=== PATIENT | female | born 1965 | race African-American/Black ===

== ENCOUNTER 2016-10-30 15:07 | Emergency (ER) ==
[2016-10-30 17:09] VITALS: BP 152/82
--- NOTE | 2016-10-30 18:32 | Diag Imaging Result Document ---
PROCEDURE NAME: FLAT/UPRIGHT ABD/1 VIEW CHEST - 10/30/2016 FLAT AND UPRIGHT WITH CHEST, 5 VIEWS: COMPARISON: Chest compared to 08/17/2015. The lungs are well expanded. The heart is not enlarged. No pneumonia. No free air beneath the diaphragm. The bowel loops are not dilated. There is stool in the proximal colon. No organomegaly. No abnormal abdominal calcifications. There is a left pelvic calcification believed to be a phlebolith. Mild curvature to the spine. IMPRESSION: Mild constipation.
[2016-10-30 19:07] LABS: MANUAL DIFF NEEDED? NO
[2016-10-30 19:10] LABS: BASO% 0.2 % (0.0-0.8); EOS# 0.09 X1000 (0.0-0.7); EOS% 0.9 % (0.0-10.0); HEMATOCRIT 39.8 % (37.0-47.0); HEMOGLOBIN 13.1 g/dL (12.0-16.0); IMM GRAN# 0.03 X1000 (0.0-0.04); IMM GRAN% 0.3 % (0.0-0.5); LYMPH# 2.98 X1000 (1.2-3.4); LYMPH% 28.7 % (20.5-51.1); MCH 28.9 PG (27-31); MCHC 32.9 g/dL (33-37); MCV 87.7 FL (81-99); MONO# 0.67 X1000 (0.11-0.59); MONO% 6.4 % (1.7-9.3); MPV 8.8 FL (7.4-10.4); NEUT% 63.5 % (42.2-75.2); PLT 316 X1000 (130-400); RBC 4.54 XMIL (4.2-5.4)
[2016-10-30] MEDS ORDERED: ZOFRAN ODT PO ONE (19:21)
--- NOTE | 2016-10-30 19:21 | PROVIDER DOCUMENTATION ---
HPI-Abdominal Pain/GI Problem - General Chief Complaint: Nausea/Vomiting Stated Complaint: THROWING UP Time Seen by Provider: 10/30/16 19:16 Source: patient Allergies/Adverse Reactions: Patient Allergies Allergy/AdvReac Type Severity Reaction Status Date / Time aspirin AdvReac NAUSEA Verified 10/30/16 17:08 Home Medications: Home Medication List Medication Instructions Recorded Confirmed Last Taken Type Fluticasone 50 Mcg Nasal [place] 2 spray RAMONA DAILY 12/31/12 10/30/16 12/28/12 History [Flonase] Iron,Carbonyl [Iron] 65 mg PO QAM 12/31/12 10/30/16 08/17/15 History Losartan/Hydrochlorothiazide 1 each PO QAM 12/31/12 10/30/16 08/17/15 History [Losartan-Hctz 100-12.5 mg Tab] Nabumetone 1,000 mg PO QHS 12/31/12 10/30/16 1 Day Ago History Potassium Chloride [Klor-Con 10] 20 meq PO QHS 12/31/12 10/30/16 1 Day Ago History Fluticasone/Salmet 100/50 INH 1 puff INH RTBID #1 inhaler 08/17/15 10/30/16 Unknown Rx [Advair 100/50 Diskus] Ondansetron Odt [Zofran 8Mg Odt] 8 mg PO Q8H PRN PRN #20 tablet 10/30/16 Unknown Rx Potassium Chloride [K-Tab ER] 20 meq PO BID #20 tablet.er 10/30/16 Unknown Rx - History of Present Illness-ABD Nature of Presenting Problems: 51 yof c/o vomiting started about 11 am and 2 other times today. Denies diarrhea , Last BM this morning. No abd pain. No other symptoms at this time. Abdominal Pain Onset Location: denies: RUQ, LUQ, RLQ, LLQ, epigastric, periumbilical, suprapubic, generalized abdomen, flank, unknown, other Pain Radiation: denies: no radiation, RUQ, LUQ, RLQ, LLQ, epigastric, periumbilical, flank, groin, scapula, shoulder, chest, back, other Quality of Pain: reports: none Severity in ED: denies: mild, moderate, severe Onset/Duration: reports: 4-6 hours ago Timing: reports: intermittent Activities at Onset: reports: none Exposure to sick contacts?: No Modifying Factors: improves with: nothing Associated Symptoms: reports: nausea, vomiting Last BM: this morning Dark Stools Present?: reports: none noticed Rectal Bleeding: reports: none Rectal Pain: reports: none # of Vomiting Episodes: 3 Bruising or Bleeding Gums?: No Similar Symptoms Previously?: No Recently seen or treated by another doctor?: No Review of Systems - Adult - REVIEW OF SYSTEMS - ADULT Constitutional: reports: see HPI. denies: no symptoms reported, chills, fever, fatique, night sweats, weight gain, weight loss, other Eyes: reports: no symptoms reported. denies: see HPI, discharge, dry eyes, decreased vision, blurred vision, double vision, eye pain, redness, other Ears, Nose, Mouth & Throat: reports: no symptoms reported. denies: see HPI, ear discharge, ear pain, hearing loss, tinnitus, epistaxis, sinus problem, nose pain, loose teeth, mouth/dental pain, mouth swelling, hoarseness, throat pain, throat swelling, other Cardiovascular: reports: no symptoms reported. denies: see HPI, chest pain, edema, heart murmur, irregular heart rate, orthopnea, palpitations, poor circulation, PND, syncope, other Respiratory: reports: no symptoms reported. denies: see HPI, chronic cough, cough, dyspnea on exertion, excessive sputum production, hemoptysis, pleurisy, shortness of breath, wheezing, other Gastrointestinal: reports: see HPI, nausea, vomiting. denies: no symptoms reported, abdominal pain, hematemesis, constipation, diarrhea, difficulty swallowing, frequent heartburn, poor appetite, rectal bleeding, other Genitourinary: reports: no symptoms reported. denies: see HPI, dysuria, discharge, frequency, flank pain, frequent UTI's, hematuria, hesitency, incontinence, urinary retention, urgency, other Musculoskeletal: reports: no symptoms reported. denies: see HPI, bone pain, back pain, frequent leg cramps, joint pain, joint swelling, muscle aches, muscle weakness, neck pain, other Integumentary: reports: no symptoms reported. denies: see HPI, hives, hair loss , itching, mole changes, nail changes, rash, skin sores/ulcer, skin thickening, other Neurological: reports: no symptoms reported. denies: see HPI, ataxia, dizziness /vertigo, headache/migraines, loss of balance, numbness, paresthesia, seizure, slurred speech, syncope, tremors, other All Other Systems: Reviewed and Negative Past History - Adult - PAST MEDICAL HISTORY-ADULT Review of Records: reports: Old Records Reviewed, Nursing Assessment Review, Medications Reviewed, Social history reviewed & non-contributory. Major Childhood Illnesses: reports: denies history Cardiovascular: reports: HTN Respiratory: reports: sleep apnea Additional History: Cervical cancer; Heart murmur; urinary stress incontinence - PRIOR SURGERIES/PROCEDURES Surgical/Procedure History: reports: hysterectomy, other (Breast Bio) - IMMUNIZATION STATUS Childhood Immunizations: See Nurse Assessment Flu Vaccine: See Nurse Assessment - FAMILY HISTORY Family History: reviewed, not pertinent Physical Exam-General - PHYSICAL EXAM-ADULT Initial Vital Signs Reviewed: Yes - CONSTITUTIONAL General Appearance: appears well, alert, no apparent distress. negative: mild distress, moderate distress, severe distress, cachetic, obese, thin, anxious, lethargic, slow to respond, obtunded, combative, other - EYES Eyes: PERRL/EOMI, pink conjunctivae. negative: fundi clear, no AV nicking, anisocoria, conjuctival exudate, EOM palsy, meningismus, pale conjunctivae, photophobia, sclera injected, scleral icterus, subconjunctival hemorrhage, sunken eyes, other - HEAD, EARS, NOSE, MOUTH & THROAT HENMT: normocephalic/atraumatic, moist mucous membranes, normal ENT inspection, TMs normal, pharynx normal. negative: angioedema, dental decay, hearing deficit , pharyngeal erythema, tonsillar exudate, TM abnormal, TM obscurred by cerumen, frontal tenderness, maxillary tenderness, other - NECK Neck: non-tender, full range of motion, supple, normal inspection. negative: Brudzinski's sign, carotid bruit, C-spine tenderness, limited range of motion, lymphadenopathy, meningismus, trachial deviation, tender lateral, tender midline , thyromegaly, other - RESPIRATORY Respiratory: chest non-tender, lungs clear, normal breath sounds, no pleuratic chest pain, no respiratory distress, no accessory muscle use. negative: respiratory distress, decreased breath sounds, accessory muscle use, crackles, rales, rhonchi, stridor, wheezing, dull on percussion, prolonged expiration, pain on inspiration, plerual rub, retractions, splinting, decreased rate, increased rate, crepitus, other - CARDIOVASCULAR Cardiovascular: normal peripheral pulses, regular rate, rhythm, no edema, no gallop, no JVD, no murmur. negative: JVD, bradycardia, tachycardia, diastolic murmur, systolic murmur, gallop/S3, gallop/S4, extra beats, friction rub, irregularly irregular, PMI displaced laterally, other - CHEST (BREASTS) Chest/Breast: deferred. negative: normal breast inspection, no masses/lumps, no tenderness, nipple discharge, tenderness, mass/lump noted, other - GASTROINTESTINAL (ABDOMEN) Abdominal Exam: normal bowel sounds, non tender, soft, no organomegaly, no pulsatile mass. negative: abdominal bruit, abnormal bowel sounds, distended, guarding, rigid, rebound, tenderness, hernia, mass, hepatomegaly, spleenomegaly , McBurney's point tenderness, Rowe's sign, obturator sign, prominent aortic pulsations, psoas, Rovsing's sign, other - GENITOURINARY Female Genitalia/Pelvic Exam: deferred - LYMPHATIC Lymphatic: no adenopathy. negative: axilla node tender, cervical node tenderness, inguinal node tender, enlargement, striations, streaking, other - MUSCULOSKELETAL Back Exam: normal inspection, no CVA tenderness, no vertebral tenderness. negative: CVA tenderness, decreased range of motion, ecchymosis, kyphosis, lordosis, muscle spasm, scoliosis, swelling, vertebral tenderness, other Extremity: normal range of motion, non-tender, normal gait, normal inspection, no pedal edema, no calf tenderness, normal capillary refill. negative: pelvis stable, abnormal NV exam, calf tenderness, deformity, erythema, inflammation, joint effusion, pulse deficit, pedal edema, slow capillary refill, swelling, tenderness, other - SKIN Integumentary: normal color, normal turgor, warm/dry. negative: abrasion(s), blanching, cyanosis, diaphoresis, decubitus, dependent lividity, ecchymosis, embolic lesions, erythema, signs of IVDA, jaundice, laceration(s), mottled, pallor, petechiae, purpura, rash, swelling, tenderness, warm, zoster-like rash, other - NEUROLOGIC Neurologic: grossly normal - PSYCHIATRIC Psych/Mental Status: oriented x 3 Progress - PLAN OF CARE/RESULTS Progress/Plan/Lab Results: Laboratory Tests 10/30/16 10/30/16 10/30/16 17:59 17:59 19:35 WBC 10.39 RBC 4.54 Hgb 13.1 Hct 39.8 MCV 87.7 MCH 28.9 MCHC 32.9 L RDW Std Deviation 12.3 Plt Count 316 MPV 8.8 Immature Gran % (Auto) 0.3 Neut % (Auto) 63.5 Lymph % (Auto) 28.7 [place] % (Auto) 6.4 Eos % (Auto) 0.9 Baso % (Auto) 0.2 Immature Gran # (Auto) 0.03 Neut # (Auto) 6.60 H Lymph # (Auto) 2.98 [place] # (Auto) 0.67 H Eos # (Auto) 0.09 Baso # (Auto) 0.02 Sodium 138 Potassium 2.6 L Chloride 99 Carbon Dioxide 28 Anion Gap 11 BUN 8 Creatinine 0.8 Estimated GFR/1.73 m2 > 60 BUN/Creatinine Ratio 10 Glucose 99 Calculated Osmolality 274 Calcium 9.4 Total Bilirubin 1.20 H AST 26 ALT 29 Alkaline Phosphatase 106 H Total Protein 7.6 Albumin 4.5 Globulin 3.0 Albumin/Globulin Ratio 1.0 Amylase 72 Lipase 16 Urine Source CLEAN CATCH Urine Color YELLOW Urine Clarity CLEAR Urine pH 6.5 Ur Specific Drake 1.020 Urine Protein NEGATIVE Urine Ketones NEGATIVE Urine Blood 2+ A Urine Nitrite NEGATIVE Urine Bilirubin NEGATIVE Urine Urobilinogen NORMAL Urine Microscopic RBC <10 Urine WBC NEGATIVE Ur Epithelial Cells <10 Urine Glucose NEGATIVE Orders Category Date Time Status flat [FLAT/UPRIGHT ABD/1 VIEW CHEST] [RAD] Stat Exams 10/30/16 17:45 Completed AMYLASE [CHEM] Stat Lab 10/30/16 17:59 Completed CBC WITH ELECTRONIC DIFF [HEME] Stat Lab 10/30/16 17:59 Completed COMPREHENSIVE METABOLIC PANEL [CHEM] Stat Lab 10/30/16 17:59 Completed LIPASE [CHEM] Stat Lab 10/30/16 17:[address] W/POSS RFLX CULT [URINALYSIS] Stat Lab 10/30/16 19:35 Completed Ondansetron Odt [Zofran Odt] Med 10/30/16 19:21 Discontinued 4 mg PO NOW ONE Potassium Chloride E.r. [Klor-Con] Med 10/30/16 19:38 Discontinued 40 meq PO NOW ONE Vital Signs Temp Pulse Resp BP Pulse Ox 10/30/16 17:05 97.5 F L 93 H 18 152/82 98 aspirin Adverse Reaction (Verified 10/30/16 17:08) NAUSEA Fluticasone 50 Mcg Nasal [place] [Flonase] 2 spray RAMONA DAILY 12/31/12 Iron,Carbonyl [Iron] 65 mg PO QAM 12/31/12 Losartan/Hydrochlorothiazide [Losartan-Hctz 100-12.5 mg Tab] 1 each PO QAM 12/31 Nabumetone 1,000 mg PO QHS 12/31/12 Potassium Chloride [Klor-Con 10] 20 meq PO QHS 12/31/12 Fluticasone/[place] 100/50 INH [Advair 100/50 Diskus] 1 puff INH RTBID #1 inhaler 08/17/15 Ondansetron Odt [Zofran 8Mg Odt] 8 mg PO Q8H PRN PRN #20 tablet 10/30/16 Potassium Chloride [K-Tab ER] 20 meq PO BID #20 tablet.er 10/30/16 Laboratory 10/30/16 10/30/16 10/30/16 19:35 17:59 17:59 WBC 10.39 RBC 4.54 Hgb 13.1 Hct 39.8 MCV 87.7 MCH 28.9 MCHC 32.9 L RDW Std Deviation 12.3 Plt Count 316 MPV 8.8 Immature Gran % (Auto) 0.3 Neut % (Auto) 63.5 Lymph % (Auto) 28.7 [place] % (Auto) 6.4 Eos % (Auto) 0.9 Baso % (Auto) 0.2 Immature Gran # (Auto) 0.03 Neut # (Auto) 6.60 H Lymph # (Auto) 2.98 [place] # (Auto) 0.67 H Eos # (Auto) 0.09 Baso # (Auto) 0.02 Sodium 138 Potassium 2.6 L Chloride 99 Carbon Dioxide 28 Anion Gap 11 BUN 8 Creatinine 0.8 Estimated GFR/1.73 m2 > 60 BUN/Creatinine Ratio 10 Glucose 99 Calculated Osmolality 274 Calcium 9.4 Total Bilirubin 1.20 H AST 26 ALT 29 Alkaline Phosphatase 106 H Total Protein 7.6 Albumin 4.5 Globulin 3.0 Albumin/Globulin Ratio 1.0 Amylase 72 Lipase 16 Urine Source CLEAN CATCH Urine Color YELLOW Urine Clarity CLEAR Urine pH 6.5 Ur Specific Drake 1.020 Urine Protein NEGATIVE Urine Ketones NEGATIVE Urine Blood 2+ A Urine Nitrite NEGATIVE Urine Bilirubin NEGATIVE Urine Urobilinogen NORMAL Urine Microscopic RBC <10 Urine WBC NEGATIVE Ur Epithelial Cells <10 Urine Glucose NEGATIVE Departure - Departure Time of Disposition Order: 19:39 DIAGNOSIS: Hypokalemia due to loss of potassium Disposition: HOME 01 Certified Medical Emergency: Emergent Condition: Stable Additional Instructions: ED Follow Up Instructions: You have been treated by a care provider in the Emergency Department. These instructions are being provided to you so you can have an understanding of how to care for yourself upon discharge. Upon discharge from the Emergency Department, you are responsible for making arrangements for follow-up care by a physician of your choice. Take all prescribed medications as directed. Return to the Emergency Department immediately for any new or worsening symptoms. You may call the Physician Referral phone number at [phone] to obtain a list of Physicians who are taking new patients. Prescriptions: Potassium Chloride [K-Tab ER] 20 meq PO BID #20 tablet.er Ondansetron Odt [Zofran 8Mg Odt] 8 mg PO Q8H PRN PRN #20 tablet PRN Reason: Nausea Referrals: Vijay Melo MD [STAFF PHYSICIAN] - Forms: Return to School/Parent Work Instructions: Potassium Salts tablets, extended-release tablets or capsules, Ondansetron tablets, Hypokalemia Attestation - Physician/ ROGELIO Attestation Patient care was provided by Advanced Practice Provider:: Yes Advanced Practice Provider:: Austin Hillman Advanced Practice Provider documentation review:: The Mid-level provider documentation, treatment plan and medical decision making was reviewed by the physician who agrees with all treatment and medical decision making by the [facility]. Physician Attestation - Physician Attestation I, the provider, attest to the following statement:: Austin Hillman Physician documentation Attestation:: This documentation recorded by the scribe accurately reflects the service I personally performed and the decisions made by me.
[2016-10-30 19:35] LABS: AGAP 11; ALBUMIN 4.5 g/dL (3.5-5.0); ALKALINE PHOSPHATASE 106 U/L (32-104); AMYLASE 72 U/L (20-200); BUN 8 mg/dL (8-22); CALCIUM 9.4 mg/dL (8.8-10.2); CHLORIDE 99 mmol/L (98-107); COSMO 274; GOT 26 U/L (10-30); GPT 29 U/L (10-36); LIPASE 16 U/L (13-60); POTASSIUM 2.6 mmol/L (3.5-5.1); SODIUM 138 mmol/L (136-145); TCO2 28 mmol/L (25-35); TOTAL PROTEIN 7.6 g/dL (6.3-8.3)
[2016-10-30] MEDS ORDERED: KLOR-CON PO ONE (19:38)
[2016-10-30 20:16] LABS: URINE CULTURE PL NEEDED? NO; URINE SOURCE CLEAN CATCH
[2016-10-30 20:17] LABS: BILIRUBIN URINE NEGATIVE (NEGATIVE); CLARITY CLEAR (CLEAR); COLOR YELLOW; GLUCOSE URINE NEGATIVE (NEGATIVE); URINE EPITHELIAL CELLS <10 /HPF (<10); URINE RBC <10 /HPF (<10)
[2016-10-30 20:22] LABS: BLOOD URINE 2+ (NEGATIVE); LEUKOCYTES URINE NEGATIVE (NEGATIVE); NITRITE URINE NEGATIVE (NEGATIVE); PH URINE 6.5; PROTEIN URINE NEGATIVE (NEGATIVE); UROBILINOGEN URINE NORMAL
== END 2016-10-30 20:54 | disposition home or self-care (01) ==
LOC: P.ED 15:07
DX: E87.6 Hypokalemia (principal); R11.2 Nausea with vomiting, unspecified; I10 Essential (primary) hypertension; K59.00 Constipation, unspecified; Z79.899 Other long term (current) drug therapy; Z79.51 Long term (current) use of inhaled steroids
CPT/HCPCS: 74022; 80053; 81001; 82150; 83690; 85025; 99283